=== PATIENT | female | born 1940 | race Caucasian/White ===

== ENCOUNTER 2021-03-16 11:19 | Outpatient (CLI) | payer MEDICARE, BC ==
[2021-03-17 00:16] LABS: SARS-CoV-2 PCR by NAA Not Detected (NotDetected)
== END 2021-03-16 11:20 | disposition home or self-care (01) ==
LOC: CSHLAB 11:19
PROVIDERS: ATTEND Internal Medicine Gastroenterology
DX: Z20.822 Contact with and (suspected) exposure to COVID-19 (principal)
CPT/HCPCS: U0003; U0005

== ENCOUNTER 2021-07-06 08:20 | Outpatient (CLI) | payer MEDICARE, BC | END 2021-07-06 08:21 | disposition home or self-care (01) | LOC: CSHWCC 08:20 | PROVIDERS: ATTEND Nurse Practitioner Family | DX: T81.89XD Other complications of procedures, not elsewhere classified, subsequent encounter (principal) | CPT/HCPCS: 11042; 11045; 97605; 99203; G0463 ==

== ENCOUNTER 2021-07-09 15:28 | Outpatient (CLI) | payer MEDICARE, BC | END 2021-07-09 15:29 | disposition home or self-care (01) | LOC: CSHWCC 15:28 | PROVIDERS: ATTEND Nurse Practitioner Family | DX: T81.89XD Other complications of procedures, not elsewhere classified, subsequent encounter (principal); H81.12 Benign paroxysmal vertigo, left ear; H90.3 Sensorineural hearing loss, bilateral | CPT/HCPCS: 95992; 97605 ==

== ENCOUNTER 2021-07-13 08:48 | Outpatient (CLI) | payer MEDICARE, BC | END 2021-07-13 08:49 | disposition home or self-care (01) | LOC: CSHWCC 08:48 | PROVIDERS: ATTEND Nurse Practitioner Family | DX: T81.89XD Other complications of procedures, not elsewhere classified, subsequent encounter (principal) | CPT/HCPCS: 11042; 11045; 97605 ==

== ENCOUNTER 2021-07-31 08:01 | Outpatient (CLI) | payer MEDICARE, BC | END 2021-07-31 08:02 | disposition home or self-care (01) | LOC: CSHWCC 08:01 | PROVIDERS: ATTEND Nurse Practitioner Family | DX: T81.89XD Other complications of procedures, not elsewhere classified, subsequent encounter (principal); Z93.3 Colostomy status | CPT/HCPCS: 97605 ==

== ENCOUNTER 2021-08-07 08:33 | Outpatient (CLI) | payer MEDICARE, BC | END 2021-08-07 08:34 | disposition home or self-care (01) | LOC: CSHWCC 08:33 | PROVIDERS: ATTEND Nurse Practitioner Family | DX: T81.89XD Other complications of procedures, not elsewhere classified, subsequent encounter (principal); Z93.3 Colostomy status | CPT/HCPCS: 97605 ==

== ENCOUNTER 2021-08-14 08:05 | Outpatient (CLI) | payer MEDICARE, BC | END 2021-08-14 08:06 | disposition home or self-care (01) | LOC: CSHWCC 08:05 | PROVIDERS: ATTEND Nurse Practitioner Family | DX: T81.89XD Other complications of procedures, not elsewhere classified, subsequent encounter (principal); Z93.3 Colostomy status | CPT/HCPCS: 97605 ==

== ENCOUNTER 2021-08-21 08:04 | Outpatient (CLI) | payer MEDICARE, BC | END 2021-08-21 08:05 | disposition home or self-care (01) | LOC: CSHWCC 08:04 | PROVIDERS: ATTEND Nurse Practitioner Family | DX: T81.89XD Other complications of procedures, not elsewhere classified, subsequent encounter (principal) | CPT/HCPCS: 97605 ==

== ENCOUNTER 2021-08-28 08:05 | Outpatient (CLI) | payer MEDICARE, BC | END 2021-08-28 08:06 | disposition home or self-care (01) | LOC: CSHWCC 08:05 | PROVIDERS: ATTEND Nurse Practitioner Family | DX: T81.89XD Other complications of procedures, not elsewhere classified, subsequent encounter (principal) | CPT/HCPCS: 97139; 97605; G0463; 99212 ==

== ENCOUNTER 2021-09-07 08:36 | Outpatient (CLI) | payer MEDICARE, BC | END 2021-09-07 08:37 | disposition home or self-care (01) | LOC: CSHWCC 08:36 | PROVIDERS: ATTEND Nurse Practitioner Family | DX: T81.89XD Other complications of procedures, not elsewhere classified, subsequent encounter (principal) | CPT/HCPCS: 97139; 97605; G0463; 99212 ==

== ENCOUNTER 2021-09-21 15:12 | Outpatient (CLI) | payer MEDICARE, BC | END 2021-09-21 15:13 | disposition home or self-care (01) | LOC: CSHWCC 15:12 | PROVIDERS: ATTEND Nurse Practitioner Family | DX: T81.89XD Other complications of procedures, not elsewhere classified, subsequent encounter (principal) ==

== ENCOUNTER 2021-10-06 08:34 | Outpatient (CLI) | payer MEDICARE, BC | END 2021-10-06 08:35 | disposition home or self-care (01) | LOC: CSHWCC 08:34 | PROVIDERS: ATTEND Nurse Practitioner Family | DX: T81.89XD Other complications of procedures, not elsewhere classified, subsequent encounter (principal) ==

== ENCOUNTER 2021-10-20 08:05 | Outpatient (CLI) | payer MEDICARE, BC | END 2021-10-20 08:06 | disposition home or self-care (01) | LOC: CSHWCC 08:05 | PROVIDERS: ATTEND Nurse Practitioner Family | DX: T81.89XD Other complications of procedures, not elsewhere classified, subsequent encounter (principal) ==

== ENCOUNTER 2024-11-08 14:12 | Outpatient (CLI) | payer OTHER | END 2024-11-08 14:13 | disposition home or self-care (01) | LOC: CSHMRI 14:12 | PROVIDERS: ATTEND Family Medicine | DX: R42 Dizziness and giddiness (principal); G31.9 Degenerative disease of nervous system, unspecified; I67.89 Other cerebrovascular disease | CPT/HCPCS: 70551 ==